=== PATIENT | male | born 1995 | race American Indian/Alaskan Native ===

== ENCOUNTER 2017-12-04 17:43 | Emergency (ER) | payer OTHER ==
[2017-12-04 17:51] VITALS: BP 117/72
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
== END 2017-12-04 22:30 | disposition home or self-care (01) ==
LOC: ED 17:43
DX: S46.111A Strain of muscle, fascia and tendon of long head of biceps, right arm, initial encounter (principal); V89.2XXA Person injured in unspecified motor-vehicle accident, traffic, initial encounter; Y93.89 Activity, other specified; Y99.8 Other external cause status; Y92.410 Unspecified street and highway as the place of occurrence of the external cause
CPT/HCPCS: 99283